=== PATIENT | male | born 1960 ===

== ENCOUNTER 2021-11-17 05:09 | Day surgery (SDC) | payer OTHER ==
[~2021-11-17] VITALS: Ht 177.8 cm; Wt 106.1 kg
[2021-11-17] VITALS (10 sets, daily range): BP systolic 95–151; BP diastolic 54–74; PULSE 69–93; TEMP 97.7–97.9
[2021-11-17] MEDS ORDERED: TENORMIN 5050 MG/TAB PO (06:42)
[2021-11-17] MEDS ORDERED: PRINIVIL40 MG PO (06:43)
[2021-11-17] MEDS ORDERED: LIPITOR20 MG PO (06:44)
[2021-11-17] MEDS ORDERED: GLUCOPHAGE1000 MG PO (06:44)
[2021-11-17] MEDS ORDERED: PROSVENT PO (06:45)
[2021-11-17] MEDS ORDERED: NORVASC 10MG10 MG PO (06:46)
--- NOTE | 2021-11-17 12:54 | NUR ---
Patient arrived to floor from PACU at 1230. Report recieved from JESSICA Godoy Patient is drowsy but responds when their name is called. IV in left wrist, LR currently running at 125ml/hour. 6 incision sites noted to abdomen, well approximated and held by glue closure. [address], urine is currently medium red. Postop VSS. Patient currrently resting in bed, call light within reach.
--- NOTE | 2021-11-17 16:08 | NUR ---
Patient more awake as compared to when he came to the floor. First dose of Ancef given. Patient ate lunch and tolerated CLD well. Currently in bed watching television. Patient denies any complaints at this time. Call light within reach.
--- NOTE | 2021-11-17 17:15 | NUR ---
PATIENT AMBULATING AND TOLERATING ACTIVITY WELL. PATIENT NOW RESTING UP IN BEDSIDE CHAIR.
--- NOTE | 2021-11-17 17:25 | NUR ---
Patient ambulating with PCT in hallway. Gait is steady. Patient denies having any pain.
--- NOTE | 2021-11-17 23:51 | NUR ---
MEDICATED WITH OXYCODONE 5MG PO FOR PAIN/SLEEP. IS ALERT AND ORIENTED X4. IVF CONTINUE TO LEFT WRIST. TAKING ORAL FLUIDS WELL. DOBBS WITH GOOD URINE OUTPUT, BLOOD TINGED. ABD DISTENDED, HAS NOT PASSED GAS YET.
[2021-11-18 00:02] VITALS: BP 117/63; PULSE 79; TEMP 97.8
[2021-11-18 04:16] VITALS: BP 121/58; PULSE 77; TEMP 98
--- NOTE | 2021-11-18 06:00 | NUR ---
PT REPORTS GOOD REST, URINE CLEARING, GOOD OUTPUT. IVF CONTINUE.
[2021-11-18 07:29] LABS: HEMATOCRIT 30.4 % (42.0-52.0); HEMOGLOBIN 9.8 g/dl (13.5-18.0)
[2021-11-18 07:32] LABS: CALCIUM 8.7 mg/dL (8.4-10.2); CREATININE, serum 0.89 mg/dL (0.72-1.25); POTASSIUM 4.6 mmol/L (3.5-4.5)
[2021-11-18 08:00] VITALS: BP 141/74; PULSE 78; TEMP 98
--- NOTE | 2021-11-18 08:00 | NUR ---
PATIENT IS A&O. VSS. DENIES PAIN OR NAUSEA. ABD LAP SITES X6 ARE WELL APPROXIMATED WITH GLUED CLOSURE. ABD IS ROUND, SOFT AND WITH POSITIVE BOWL SOUNDS. PATIENT TOLERATING ADA DIET. AM MEDS GIVEN. IV FLUIDS INFUSING VIA PUMP INTO LEFT WRIST IV. DOBBS TO DD WITH MOD AMOUNTS OF CLEAR YELLOW URINE. HEAD TO TOE ASSESSMENT WNL. PATIENT HOPING TO DISCHARGE HOME LATER TODAY. NO OTHER NEEDS AT THIS TIME. CALL LIGHT IN REACH.
--- NOTE | 2021-11-18 09:00 | NUR ---
DR.DEVINE GUEVARA, SEE ORDERS.
--- NOTE | 2021-11-18 10:55 | NUR ---
SW met with patient to complete intake. Patient states he lives in [facility] with his Letty [phone] or [phone]. patient states that he does not utilize DME and is independent with ADL's. Patient states that his PCP is Dr. Joyce in [place] and pharmacy is [facility] in . Patient states that he does not have a DPOA at this time and does not wish to appoint anyone, but thinks he may already have someone. Patient states that his plan is to DC home upon DC. SW will continue to follow. DC plan: home
[2021-11-18 12:00] VITALS: BP 140/60; PULSE 77; TEMP 97.9
--- NOTE | 2021-11-18 13:07 | NUR ---
Retail Sales Assistant offered prayer and support with patient.
--- NOTE | 2021-11-18 15:55 | NUR ---
REPORTED OFF TO JESSICA MASSEY.
[2021-11-18 15:58] VITALS: BP 138/62; PULSE 76; TEMP 97.9
--- NOTE | 2021-11-18 18:15 | NUR ---
Care resumed for Samira. rounded and discharge orders obtained around 1700. Patient was provided with discharge education. We reviewed low cares. Leg bag teaching given. Patient able to demonstate cares. Int Dc. We reviewed home meds list & last dose taken. Tylenol for pain prior to discharge, patient aware of amount of tylenol he can safetly take daily. Incision cares & signs & symptoms of infection reviewed. Patient knows to call with any questions or concerns. Patient also aware to call office for follow up appt on saturday. Patient denies questions or concerns. Patient ambulated out with all belongings & his family taking him home.
== END 2021-11-18 18:30 | disposition home or self-care (01) ==
LOC: SDCO 05:09 → SURG 12:30 → SDCO 11-18 18:30
PROVIDERS: Urology
DX: C61 Malignant neoplasm of prostate (principal); E11.9 Type 2 diabetes mellitus without complications; I10 Essential (primary) hypertension; E78.5 Hyperlipidemia, unspecified; G47.33 Obstructive sleep apnea (adult) (pediatric); F17.210 Nicotine dependence, cigarettes, uncomplicated; Z98.890 Other specified postprocedural states; Z86.16 Personal history of COVID-19; Z98.52 Vasectomy status; Z79.899 Other long term (current) drug therapy; Z79.84 Long term (current) use of oral hypoglycemic drugs
CPT/HCPCS: OP; A4314; J0330; J0690; J1100; J1885; J2405; J2704; J2710; J3010; J3475; J7120